=== PATIENT | female | born 1950 | race Caucasian/White ===

== ENCOUNTER 2021-10-14 07:26 | Day surgery (SDC) | payer OTHER, SELFPAY ==
--- NOTE | 2021-10-14 07:45 | HO.ANESPROP2 ---
FORMERLY [facility] Past Medical History Medical History Anxiety Dry eyes HTN (hypertension) Hyperlipidemia Hypothyroidism On beta kenzie at home Overactive bladder Vertigo Family History Family history of problems with anesthesia: No Surgical History Surgical History History of open reduction and internal fixation (ORIF) procedure Hx of colonoscopy Hx of laparoscopy History of Problems with Anesthesia: No Social History Social History Advance Directives: No Advance Directives Information Provided: Yes Meds Allergies Allergy/AdvReac Type Severity Reaction Status Date / Time shellfish derived Allergy Severe DIFFICULTY Verified 10/14/21 07:08 [SHELLFISH DERIVED] BREATHING HIVES BLUE LIPS indomethacin [From INDOCIN] Allergy Intermediate NAUSEA Verified 10/14/21 07:08 hydrocodone [HYDROCODONE] Allergy Unknown UNKNOWN Verified 10/14/21 07:08 Active Medications: Current Medications Lactated Ringer's (Lr) 1,000 mls @ 100 mls/hr IVCONT .Q10H PACO Sodium Biphosphate/Sodium Phosphate (Sodium Phosphate,[place]-Dibasic 133 Ml Enema) 133 ml SD ONCE PRN PRN Reason: Poor Colonoscopy Prep Results Home Medications Medication Instructions Recorded Confirmed Last Taken Type alprazolam 0.5 mg tablet 0.5 mg PO BEDTIME PRN Anxiety 10/08/21 10/08/21 Unknown History ascorbic acid (vitamin C) 1,000 mg 1,000 mg PO DAILY 10/08/21 10/08/21 Unknown History tablet (Vitamin C) cholecalciferol (vitamin D3) 50 50 mcg PO DAILY 10/08/21 10/08/21 Unknown History mcg (2,000 unit) capsule (Vitamin D3) hydrochlorothiazide 12.5 mg tablet 12.5 mg PO DAILY 10/08/21 10/08/21 Unknown History levothyroxine 75 mcg tablet 75 mcg PO DAILY 10/08/21 10/08/21 Unknown History metoprolol succinate 25 mg 25 mg PO DAILY 10/08/21 10/08/21 Unknown History tablet,extended release 24 hr sertraline 25 mg tablet 25 mg PO DAILY 10/08/21 10/08/21 Unknown History simvastatin 10 mg tablet 10 mg PO BEDTIME 10/08/21 10/08/21 Unknown History tolterodine 4 mg capsule,extended 4 mg PO DAILY 10/08/21 10/08/21 Unknown History release 24 hr Exam Exam Date and Time: October 14, 2021 [id number] Airway Mallampati Class: II TM Dist: >3cm Neck ROM: Full Assessment and Plan Assessment Anesthesia Assessment: Anesthesia Plan Discussed and Chart Reviewed Final Anesthetic Review Family History of Problems with Anesthesia: No History of Problems with Anesthesia: No NPO: Yes ASA Class: II Final Preanesthetic Review: No Changes in Pt Med Stat, Meds/Allgs Chart Reviewed, Consent Obtained/Reviewed and Anes Risks/Benef Reviewed Patient Risk: Low Procedure Risk: Low Anesthetic Plan Anesthetic Plan: MAC: Disposition: Standard PACU
[2021-10-14 07:59] VITALS: BMI 27.8
[2021-10-14 08:03] VITALS: BP 132/70; PULSE 77; RESP 16; TEMP 36.3; O2SAT 98
[2021-10-14] MEDS: Lactated Ringers 1,000 ML 100 ML IVCONT (08:12)
[2021-10-14 09:31] VITALS: BP 80/41; PULSE 69; RESP 16; TEMP 36.4; O2SAT 95
--- NOTE | 2021-10-14 09:34 | PM.OP ---
Brief Operative Note Date of Service: 10/14/21 Pre-op diagnosis: Screening Post-op diagnosis: other (Colon polyp) Procedure: Colonoscopy to the cecum and TI with cold snare polypectomy Surgeon: Ethan Dick Anesthesia: MAC Was an Screen Stretcher used for this Procedure?: No Estimated blood loss (mL): 2.0 Pathology: other (A. Ascending colon polyp) Condition: stable Disposition: PACU
[2021-10-14 09:46] VITALS: BP 106/55; PULSE 65; RESP 16; O2SAT 96
[2021-10-14 09:59] VITALS: BP 110/67; PULSE 60; RESP 16; TEMP 36.4; O2SAT 98
--- NOTE | 2021-10-14 12:42 | OP_ITS ---
SURGEON: Ethan Dick MD INDICATIONS: The patient presents for evaluation of colorectal cancer screening and personal history of tubular adenoma of the colon. Full consent has been obtained from her for this, including risks of bleeding and perforation. PREOPERATIVE DIAGNOSIS: POSTOPERATIVE DIAGNOSIS: PROCEDURE PERFORMED: Colonoscopy to the cecum and terminal ileum with cold snare polypectomy. ESTIMATED BLOOD LOSS: COMPLICATIONS: ANESTHESIA: Monitored anesthesia care. ASSISTANTS: SPECIMENS: PREOPERATIVE DIAGNOSES: Colorectal cancer screening and personal history of tubular adenoma of the colon. POSTOPERATIVE DIAGNOSES: Colorectal cancer screening and personal history of tubular adenoma of the colon, small colon polyp, diverticulosis and internal hemorrhoids. DESCRIPTION OF PROCEDURE: The patient was placed in the left lateral decubitus position. The digital rectal exam revealed external hemorrhoids. The Olympus video pediatric colonoscope was entered into the rectum and advanced easily to the cecum. Once in the cecum, I did identify normal-appearing cecal pouch with appendiceal orifice and a normal-appearing ileocecal valve. The terminal ileum was cannulated and appeared normal. The scope was withdrawn back into the colon. The entire cecum and ileocecal valve appeared normal. The scope was then slowly withdrawn assessing all mucosal surfaces carefully. Preparation was excellent. In the proximal ascending colon was an approximately 5 or 6 mm polyp, which was removed by cold snare polypectomy and recovered by suction. The polypectomy site appeared clean, without any sign of residual polyp nor any significant bleeding. I did not visualize any other polyps, colitis, nor angiodysplasia. There was a moderate amount of sigmoid diverticulosis. In the rectum, scope was retroflexed visualizing some small internal hemorrhoids, but no other pathology. The rectal mucosa appeared normal. The scope was straightened and withdrawn from the patient. She tolerated the procedure well and was returned to recovery area in stable condition. IMPRESSION: 1. Small colon polyp, status post cold snare polypectomy. 2. Diverticulosis. 3. Internal hemorrhoids. 4. External hemorrhoids. PLAN: The results of the pathology will be checked. I would recommend a repeat colonoscopy in 5 years. She was advised not to use any aspirin and NSAIDs for 1 week. MD LIYAH Root/FLAKO / [id number]
== END 2021-10-14 10:43 | disposition home or self-care (01) ==
PROVIDERS: PCP Family Medicine; Visit Provider Internal Medicine
PROC: 0DJD8ZZ Inspection of Lower Intestinal Tract, Via Natural or Artificial Opening Endoscopic (ICD-10-PCS; CPT 45378; principal; 2021-10-14 10:30)
DX: Z12.11 Encounter for screening for malignant neoplasm of colon (principal); Z86.010 Personal history of colon polyps; D12.2 Benign neoplasm of ascending colon; K57.30 Diverticulosis of large intestine without perforation or abscess without bleeding; K64.8 Other hemorrhoids; K64.4 Residual hemorrhoidal skin tags; I10 Essential (primary) hypertension; E03.9 Hypothyroidism, unspecified; E78.5 Hyperlipidemia, unspecified; F41.1 Generalized anxiety disorder; N32.81 Overactive bladder; Z79.899 Other long term (current) drug therapy
CPT/HCPCS: 45385; 88305